=== PATIENT | male | born 1985 | race Caucasian/White ===

== ENCOUNTER 2016-12-26 13:24 | Emergency (ER) | payer MEDICAID, OTHER ==
[2016-12-26 14:16] VITALS: BP 124/79
[2016-12-26] MEDS ORDERED: lamoTRIgine 100 MG Tab PO ONE (15:17)
[2016-12-26] MEDS ORDERED: Ondansetron 4 MG Tab.DIS PO ONE (15:17)
[2016-12-26] MEDS ORDERED: lamoTRIgine 25 MG Tab PO STA (15:17)
--- NOTE | 2016-12-26 15:24 | EDM.PDOC ---
ED HPI GENERAL MEDICAL PROBLEM - General Chief Complaint: General Stated Complaint: OUT OF MEDS Time Seen by Provider: 12/26/16 14:53 Source of Information: Reports: Patient, RN Notes Reviewed History Limitations: Reports: No Limitations - History of Present Illness INITIAL COMMENTS - FREE TEXT/NARRATIVE: 31-year-old gentleman presents emergency department day complaint of being on medications has known history of schizophrenia he recently was released from incarceration he was given 1 week's worth medications he has been out now for about 4 days. He has an appointment with his auditor appraiser tomorrow to reestablish insurance he does have prescriptions but his medications are unaffordable at this time he is experiencing some nausea - Related Data Allergies Allergy/AdvReac Type Severity Reaction Status Date / Time No Known Allergies Allergy Verified 12/26/16 14:27 Home Meds: Home Meds atoMOXetine [Strattera] 40 mg PO ASDIRECTED 04/17/14 [History] cloZAPine [Clozapine] 100 mg PO BEDTIME 12/26/16 [History] Past Medical History Respiratory History: Reports: Asthma Gastrointestinal History: Reports: GERD Neurological History: Reports: Seizure Psychiatric History: Reports: Bipolar, Schizophrenia, Suicide Attempt, Other ( See Below) Other Psychiatric History: paranoid schizophrenic. intentional O.D. on pain meds from hernia repair surgery a few years ago - Infectious Disease History Infectious Disease History: Reports: Chicken Pox - Past Surgical History GI Surgical History: Reports: Hernia Repair/Other Social & Family History - Tobacco Use Smoking Status *Q: Current Every Day Smoker Years of Tobacco use: 20 Packs/Tins Daily: 2 Second Hand Smoke Exposure: Yes - Caffeine Use Caffeine Use: Reports: Coffee, Soda - Alcohol Use Days Per Week of Alcohol Use: 0 - Recreational Drug Use Recreational Drug Use: No Drug Use in Last 12 Months: No Recreational Drug Type: Reports: Marijuana/Hashish, Methamphetamine, Oxycodone, Vicodin ED ROS GENERAL - Review of Systems Review Of Systems: See Below Constitutional: Reports: No Symptoms HEENT: Reports: No Symptoms Respiratory: Reports: No Symptoms Cardiovascular: Reports: No Symptoms GI/Abdominal: Reports: Nausea : Reports: No Symptoms ED EXAM, GENERAL - Physical Exam Exam: See Below Exam Limited By: No Limitations General Appearance: Alert, WD/WN, No Apparent Distress Respiratory/Chest: Respiratory Distress Psychiatric: Normal Mood, Flat Affect Course - Vital Signs Last Recorded V/S: Last Vital Signs Temp 98.5 F 12/26/16 14:41 Pulse 81 12/26/16 14:41 Resp 12 12/26/16 14:41 BP 124/79 12/26/16 14:41 Pulse Ox 95 12/26/16 14:41 - Orders/Labs/Meds Meds: Medications Discontinued Medications Generic Name Dose Route Start Last Admin Trade Name Fredaniel PRN Reason Stop Dose Admin Lamotrigine 100 mg 12/26/16 15:17 Lamotrigine PO 12/26/16 15:18 ONETIME ONE Lamotrigine 50 mg 12/26/16 15:17 Lamotrigine PO 12/26/16 15:18 NOW STA Ondansetron HCl 4 mg 12/26/16 15:17 Zofran Odt PO 12/26/16 15:18 ONETIME ONE Departure - Departure Time of Disposition: 15:23 Disposition: Home, Self-Care 01 Condition: Fair Clinical Impression: Schizophrenia Qualifiers: Schizophrenia type: unspecified Qualified Code(s): F20.9 - Schizophrenia, unspecified - Discharge Information Forms: ED Department Discharge Additional Instructions: Please establish with her auditor appraiser tomorrow - Assessment/Plan Plan: Assessment Acuity = chronic Site and laterality = schizophrenia Etiology = home medications Manifestations = nausea may be related to recent discontinuation of medications Location of injury = home Lab values = none Plan Unfortunately he uses the medication of clonizpine which requires special [employer] licensing we do not have the medication in the hospital I did provide him 1 dose of Zofran and 1 dose of Lamictal he will follow-up with his auditor appraiser tomorrow Patient was in agreement with the plan all questions were answered, they were instructed to return to the emergency department or call for worsening symptoms. This note was dictated using [employer] voice recognition software please call with any questions.
== END 2016-12-26 15:56 | disposition home or self-care (01) ==
LOC: JP.ED 13:24
DX: F20.9 Schizophrenia, unspecified (principal); J45.909 Unspecified asthma, uncomplicated; K21.9 Gastro-esophageal reflux disease without esophagitis; F31.9 Bipolar disorder, unspecified; F17.210 Nicotine dependence, cigarettes, uncomplicated
CPT/HCPCS: 99282; A9270; 99283